=== PATIENT | male | born 1995 | race African-American/Black ===

== ENCOUNTER 2024-06-26 14:22 | Outpatient (CLI) | payer MEDICAID, SELFPAY | END 2024-06-26 14:23 | disposition home or self-care (01) | DX: Z11.3 Encounter for screening for infections with a predominantly sexual mode of transmission (principal); Z11.59 Encounter for screening for other viral diseases; Z11.4 Encounter for screening for human immunodeficiency virus [HIV] | CPT/HCPCS: 86592; 86703; 86706; 86803; 87340; 87491; 87591 ==